=== PATIENT | female | born 2005 | race Caucasian/White ===

== ENCOUNTER 2024-07-31 14:43 | Emergency (ER) | payer OTHER, SELFPAY ==
[2024-07-31 14:45] VITALS: BP 146/94; PULSE 131; RESP 18; TEMP 36.6; O2SAT 95; BMI 34.7
[2024-07-31 16:56] LABS: Mucous, Urine 0 SEEN /hpf (<or=2+)
[2024-07-31 17:03] LABS: Glucose, Dipstick Normal (Normal); Ketone-Dipstick 50 mg/dl (Negative); Leukocyte Esterase-Dipstick 25 /ul (Negative); Nitrite-Dipstick Negative (Negative); Occult Blood-Urine 25 /ul (Negative); Protein-Dipstick 30 mg/dl (Negative); Urine Urobilinogen Normal (Normal); Urine pH 6.5 (5.0 - 8.0)
[2024-07-31 17:04] LABS: Color, Urine Yellow (Yellow); Urine Bilirubin Dipstick 1 mg/dL (Negative); Urine Clarity Sl Cloudy (Clear)
[2024-07-31 17:11] LABS: Absolute Lymphocyte Count 2.82 X10^3/uL (0.83-4.51); Absolute Neutrophil Count 17.4 X10^3/uL (2.0-7.7); Basophil# 0.08 X10^3/uL; Basophil% 0.4 % (0-1); Eosinophil# 0.04 X10^3/uL; Eosinophils% 0.2 % (0-5); Hemoglobin 11.1 g/dL (12.0-15.0); Lymphocyte # 2.82 X10^3/ul (0.83-4.51); Lymphocyte % 12.5 % (19-41); Mean Corp Hgb Conc 32.6 g/dL (32-36); Mean Corpuscular Hgb 28.3 pg (27.0-32.0); Mean Corpuscular Volume 86.7 fL (81-99); Mean Platelet Vol. 9.2 fl (6.2-12.0); Monocyte# 1.87 X10^3/uL; Monocyte% 8.3 % (0-10); NRBC Flagged by Analyzer 0 % (0-5); Neutrophil # 17.36 X10^3/uL (2.7-7.7); POSITIVE DIFFERENTIAL YES; Platelet Count 653 K/mm3 (150-450); RBC Distribution Width CV 14.8 % (11.6-14.6); RBC Distribution Width SD 47.4 fl (35.1-43.9); Red Blood Count 3.92 M/mm3 (4.2-5.4); White Blood Count 22.5 K/mm3 (4.4-11.0)
[2024-07-31 17:12] LABS: Differential Indicated SCAN CRITERIA MET
[2024-07-31 17:16] LABS: Bacteria 1+ /hpf (None Seen); Red Blood Cells-Urine 0-5 SEEN /hpf (0-5); Squamous Epithelial Cells - UA 5-10 SEEN /hpf (5-10); White Blood Cells 5-10 SEEN /hpf (0-5)
[2024-07-31 17:24] LABS: Internal QC Validated? YES +Cl - CLEAR BKGD; Pregnancy, Serum, hCG Quali. NEGATIVE Negative
[2024-07-31 17:28] LABS: ALB/GLOB Ratio 0.4 RATIO (0.9-2.4); AST(SGOT) 37 U/L (15-37); Alanine Aminotransfer ALT/SGPT 29 U/L (13-56); Albumin, Serum 2.4 g/dL (3.2-5.0); Alkaline Phosphatase 104 U/L (45-117); Anion Gap 10 (5-15); BUN 12 mg/dL (7-18); BUN/Creat Ratio 20.1 RATIO (10-20); Calcium,Total 9.2 mg/dL (8.5-10.1); Chloride 96 mmol/L (98-107); EST Glomerular Filtration Rate 135 mL/min (>60); Est Glom Filt Rate - Afr Amer 163 mL/min (>60); Estimated Creatinine Clearance 180.81 ml/min; Globulin 5.4 g/dL (2.2-4.2); Glucose 89 mg/dL (74-106); Potassium 3.3 mmol/L (3.5-5.1); Protein, Total 7.8 g/dL (6.4-8.2); Sodium Level 134 mmol/L (136-145)
[2024-07-31 17:43] VITALS: BP 131/76; PULSE 82; RESP 15; TEMP 36.7; O2SAT 97
[2024-07-31 17:43] LABS: Differential Comment SCANNED
--- NOTE | 2024-07-31 17:54 | CT_ITS ---
We are attempting to reach an attending provider to discuss findings. An addendum with communication details will be sent when the communication is complete. EXAM: CT ABDOMEN AND PELVIS WITH INTRAVENOUS CONTRAST CLINICAL INDICATION: RLQ pain, leuukocytosis TECHNIQUE: Helically acquired images were obtained of the abdomen and pelvis with intravenous contrast. This CT exam was performed using one or more of the following dose reduction techniques: automated exposure control, adjustment of the mA and/or kV according to patient size, and/or use of iterative reconstruction technique. CONTRAST: IV 100mL Isovue-300 COMPARISON: No relevant prior studies available. FINDINGS: LOWER THORAX: There is a fluid density structure in abutting the left heart border that measures 4.1 x 3.1 cm which may represent pericardial cyst. Lung bases are clear. ABDOMEN: LIVER: Unremarkable. Homogeneous. No focal mass. GALLBLADDER AND BILE DUCTS: Unremarkable. No calcified gallstones. No gallbladder distention or wall edema. No intra- or extrahepatic biliary ductal dilation. PANCREAS: Unremarkable. No focal cystic or solid mass. SPLEEN: Unremarkable. Normal size without focal cystic or solid mass. ADRENALS: Unremarkable. No nodules. KIDNEYS AND URETERS: Unremarkable. Normal renal size and position. No hydronephrosis. STOMACH AND BOWEL: There are borderline dilated gas and fluid-filled loops of small bowel in the lower abdomen and pelvis likely due to ileus. No focal inflammatory change. PELVIS: APPENDIX: There is a peripherally enhancing gas and fluid collection in the posterior and measures 6.8 x 9 cm compatible abscess. This appears to connect superiorly with a second gas and fluid collection in the upper anterior pelvis that measures 3.6 x 9.1 cm compatible with an abscess. There is a third collection that measures roughly 5.6 x 8.1 cm anteriorly in the lower abdomen which has gas and and stool and appears to represent an enlarged cecum. The appendix is within normal limits. BLADDER: Unremarkable. REPRODUCTIVE: Unremarkable as visualized. No mass. ABDOMEN and PELVIS: INTRAPERITONEAL SPACE: Unremarkable. No ascites or other fluid collection. No free air. BONES/JOINTS: Unremarkable. No suspicious lytic or blastic abnormality. SOFT TISSUES: Unremarkable. No discrete abdominal or pelvic wall hernia. VASCULATURE: Unremarkable. Abdominal aorta is non-dilated. LYMPH NODES: Unremarkable. No enlarged lymph nodes. CT/Abdomen/Pelvis W IV Cont ONLY IMPRESSION: 1. Peripherally enhancing fluid collections in upper pelvis extending into the lower posterior pelvis compatible abscess. The appendix appears be within normal limits. 2. . Enlargement of the cecum which swings medially abutting against the abscess. 3. Mildly dilated gas and fluid-filled loops of small bowel in the lower abdomen pelvis likely due to ileus. Electronically Signed: Tanner Nielson MD at 19:37 EDT ,
--- NOTE | 2024-07-31 18:05 | EDS_ITS ---
HPI HPI - GI History of Present Illness Chief Complaint: Abd Pain Informant: patient Narrative Narrative: Patient is a 19-year-old female denies any past medical history presenting with worsening right sided abdominal pain. She states that started 13 days ago. She notes the day before she ate pizza and the next morning she woke up and had vomiting. She is been having abdominal pain since. Reports increased pain with any type of movement or hitting bumps in the road. Ibuprofen helps. She also been having some diarrhea. She notes 2 days ago she had some blood and dark red in her stool but none since. Has nausea. Denies any fever. Denies any urinary symptoms. Last menstrual period was 1 week ago. Denies any history of abdominal surgeries. Denies any family history of any abdominal issues or Crohn's disease/ulcerative colitis. Notes over the past 2 days she has been having this left-sided neck pain that seems to coming up from her stomach. She feels it is a tightening sensation. Does feel lightheaded. PFSH PFSH Home Medications ?Medication ?Instructions ?Recorded ?Last Taken ?Type NK 07/31/24 Unknown History Allergy/AdvReac Type Severity Reaction Status Date / Time No Known Allergies Allergy Verified 07/31/24 14:45 Social History Smoking Status: Never smoker ROS ROS ED Constitutional Constitutional ED: Denies chills, fever(s) or sweats Cardiovascular Cardiovascular: Denies chest pain or palpitations Respiratory/Chest Respiratory/Chest: Denies cough Gastrointestinal Gastrointestinal: Reports abdominal pain, diarrhea, melena, nausea and vomiting Genitourinary Genitourinary ED: Denies dysuria or urinary frequency Musculoskeletal Musculoskeletal: Reports neck pain Integumentary Denies rash Neurologic Neurologic: Reports other Details: lightheaded Hematologic/Lymphatic Hematologic/Lymphatic: Denies easy bleeding or easy bruising EXAM Physical Exam Const Vital Signs: 07/31/24 14:45 07/31/24 17:43 07/31/24 19:00 Temperature 97.8 F 98.1 F Temperature Source Temporal Oral Pulse Rate 131 H 82 115 H Respiratory Rate 18 15 16 Blood Pressure 146/94 H 131/76 H 142/75 H Blood Pressure Mean 111 94 97 Pulse Ox 95 97 94 Oxygen Delivery Method Room Air Room Air Room Air 07/31/24 21:00 Temperature Temperature Source Pulse Rate 112 H Respiratory Rate 18 Blood Pressure 134/87 H Blood Pressure Mean 102 Pulse Ox 98 Oxygen Delivery Method Room Air Positive well nourished and well developed Constitutional Narrative: Mildly ill-appearing General Appearance ED: well developed HEENT Reports dry mucous membranes Mouth ED: Yes dry mucous membranes Mouth: dry mucous membranes Eyes PERRL General Eye ED: Negative for pale conjunctiva or scleral icterus Neck supple General: Negative for tenderness Resp normal respiratory effort and clear to auscultation bilaterally Cardio regular rhythm and no murmurs Rate: tachycardic GI GI Narrative: Negative Houston sign but mildly tender in the right upper quadrant Auscultation: hypoactive bowel sounds Palpation: soft, tender RLQ, McBurney's point and suprapubic and guarding RLQ Neuro moves all extremities Sensorium / Orientation: alert Motor Exam: general weakness Psych mental status grossly normal MDM MDM MDM Narrative Medical decision making narrative: Patient's vitals worsening abdominal pain over the past 13 days. Upon arrival she is tachycardic. She is quite tender and borderline peritoneal on physical exam. Differential includes intra-abdominal abscess, ruptured appendicitis, acute appendicitis, PID, volvulus and colitis. Patient has a significant leukocytosis of 22.5 with a left shift. She is some other minor electrolyte normalities and urinalysis is not consistent with infection. Her lactate is 1.0. Patient is given IV fluids, morphine and Zofran in the emergency room. CT of the abdomen and pelvis reviewed by myself as well as radiology shows multiple abscesses in the pelvis and abdomen but a normal appendix. There is an ileus present. Case is discussed with our surgeon on-call, Dr. [email or web address], who reviews the films. He is concerned that the level of abscesses will need higher level of IR or surgical care than what we can provide at [facility]. Patient would like to go to [facility]. I spoke with Dr. Short at [facility] who accepts the patient to the general surgery service. Patient started on Zosyn the emergency room. As PID is also on the differential I did perform a pelvic exam. Patient did have some bleeding present. No cervical motion tenderness present but did have tenderness with palpation on bimanual exam in the suprapubic region. Lab Data Attestation: I reviewed the patient's lab results. Labs: Laboratory Results - last 24 hr 07/31/24 07/31/24 07/31/24 16:50 17:00 18:00 WBC 22.5 H RBC 3.92 L Hgb 11.1 L Hct 34.0 L MCV 86.7 MCH 28.3 MCHC 32.6 RDW Std Deviation 47.4 H RDW Coeff of [place] 14.8 H Plt Count 653 H MPV 9.2 Immature Gran % (Auto) 1.600 H Neut % (Auto) 77.0 H Lymph % (Auto) 12.5 L [place] % (Auto) 8.3 Eos % (Auto) 0.2 Baso % (Auto) 0.4 Absolute Neuts (auto) 17.4 H Absolute Lymphs (auto) 2.82 Nucleated RBC % 0 Differential Comment SCANNED Diff Path Review May foll Sodium 134 L Potassium 3.3 L Chloride 96 L Carbon Dioxide 27.0 Anion Gap 10 BUN 12 Creatinine 0.60 Estim Creat Clear Calc 180.81 Est GFR (MDRD) Af Amer 163 Est GFR (MDRD) Non-Af 135 BUN/Creatinine Ratio 20.1 H Glucose 89 Lactic Acid 1.0 Calcium 9.2 Total Bilirubin 0.40 AST 37 ALT 29 Alkaline Phosphatase 104 Total Protein 7.8 Albumin 2.4 L Globulin 5.4 H Albumin/Globulin Ratio 0.4 L Serum , Qual NEGATIVE Urine Color Yellow Urine Clarity Sl Cloudy Urine pH 6.5 Ur Specific [place] 1.010 Urine Protein 30 H Urine Glucose (UA) Normal Urine Ketones 50 H Urine Occult Blood 25 H Urine Nitrite Negative Urine Bilirubin 1 H Urine Urobilinogen Normal Ur Leukocyte Esterase 25 H Urine RBC 0-5 SEEN Urine WBC 5-10 SEEN Ur Squamous Epith Cells 5-10 SEEN Urine Bacteria 1+ Urine Mucus 0 SEEN Radiography Diagnostic Testing: Clinical Impression(s) from Imaging Studies Abdomen/Pelvis CT 07/31/24 17:54 IMPRESSION: 1. Peripherally enhancing fluid collections in upper pelvis extending into the lower posterior pelvis compatible abscess. The appendix appears be within normal limits. 2. . Enlargement of the cecum which swings medially abutting against the abscess. 3. Mildly dilated gas and fluid-filled loops of small bowel in the lower abdomen pelvis likely due to ileus. Electronically Signed: Tanner Nielson MD at 19:37 EDT , ADDENDUM: 07/31/241955 IMPRESSION: 1. Peripherally enhancing fluid collections in upper pelvis extending into the lower posterior pelvis compatible abscess. The appendix appears be within normal limits. 2. . Enlargement of the cecum which swings medially abutting against the abscess. 3. Mildly dilated gas and fluid-filled loops of small bowel in the lower abdomen pelvis likely due to ileus. N.B. : The above Results were Read Back by Tanner Nielson MD to Susanna Patrick DO, and understanding confirmed on 07/31/2024 19:49:50 (ET). Electronically Signed: Tanner Nielson MD at 19:37 EDT , Chest X-Ray 07/31/24 18:50 IMPRESSION: No radiographic evidence of acute cardiopulmonary disease. Electronically Signed: Tanner Nielson MD at 19:31 EDT , Management Discussion w/another healthcare provider: [employer]ist [employer] and Radiologist Discharge Plan Triage Chief Complaint: Abd Pain ED Provider: Susanna Patrick Dx/Rx/DC Orders Clinical Impression: Abdominal abscess, Abscess of pelvis, Leukocytosis Prescriptions: No Action NK Primary Care Provider: Care Physician,No Primary Referrals: Care Physician,No Primary [Primary Care Provider] - Print Language: Turkish Disposition Disposition: Acute Care Hospital Discharge Location: [facility]
[2024-07-31] MEDS: 0.9% Normal Saline (1000mL) 1,000 ML 999 ML IV (18:09)
[2024-07-31] MEDS: Ondansetron 4 MG/2 ML Vial IV (18:09)
[2024-07-31] MEDS: morphine 8 MG/ML Syringe 6 MG IV (18:09)
--- NOTE | 2024-07-31 18:50 | RAD_ITS ---
EXAM: XR CHEST, 2 VIEWS CLINICAL INDICATION: left chest/shoulder pain TECHNIQUE: Frontal and lateral views of the chest. COMPARISON: No relevant prior studies available. FINDINGS: LUNGS AND PLEURAL SPACES: Unremarkable. No consolidation or edema. No pneumothorax. No effusion. HEART: Unremarkable. Cardiac silhouette not enlarged. MEDIASTINUM: Central airways and mediastinal contour are unremarkable. BONES/JOINTS: Unremarkable. No acute fracture. SOFT TISSUES: Unremarkable. RAD/Chest PA and Lateral IMPRESSION: No radiographic evidence of acute cardiopulmonary disease. Electronically Signed: Tanner Nielson MD at 19:31 EDT ,
[2024-07-31 19:00] VITALS: BP 142/75; PULSE 115; RESP 16; O2SAT 94
[2024-07-31] MEDS: Piperacil/Tazobactam 3.375 GM in 0.9% Normal Saline (50mL MB+) 50 ML IV (19:52)
[2024-07-31 21:00] VITALS: BP 134/87; PULSE 112; RESP 18; O2SAT 98
[2024-07-31] MEDS: Ketorolac 15 MG/ML Vial IV (21:42)
[2024-07-31] MEDS: 0.9% Normal Saline (1000mL) 1,000 ML 125 ML IV (22:12)
[2024-07-31 23:00] VITALS: BP 136/84; PULSE 120; RESP 18; O2SAT 98
--- NOTE | 2024-07-31 23:41 | ED.RN ---
This RN called report to [facility] at 1142 pm and spoke to nurse Stuart
[2024-08-01 01:00] VITALS: BP 150/81; PULSE 121; RESP 20; O2SAT 98
[2024-08-01 02:14] VITALS: BP 129/66; PULSE 107; RESP 20; TEMP 36.9; O2SAT 99
[2024-08-01 03:00] VITALS: BP 126/63; PULSE 108; RESP 16; O2SAT 98
[2024-08-01 15:49] LABS: Pathologist Review Reviewed
== END 2024-08-01 03:35 | disposition short-term general hospital (02) ==
PROVIDERS: Emergency Provider Emergency Medicine; Visit Provider Emergency Medicine
DX: L02.211 Cutaneous abscess of abdominal wall (principal); K56.7 Ileus, unspecified; N73.9 Female pelvic inflammatory disease, unspecified; M54.2 Cervicalgia; R19.7 Diarrhea, unspecified; R11.0 Nausea
CPT/HCPCS: 36415; 71046; 74177; 80053; 81001; 83605; 84703; 85025; 87070; 87075; 87077; 87186; 87205; 87210; 87491; 87591; 96361; 96374; 96375; 99285; J7030; J7040; Q9967; A4216; J2405